=== PATIENT | female | born 1980 | race Caucasian/White ===

== ENCOUNTER 2017-01-11 18:59 | Emergency (ER) | payer MEDICAID ==
[~2017-01-11] VITALS: Ht 160 cm; Wt 79.7 kg
[~2017-01-11 18:59] MED LIST: AUG875 PO; D-ME473S2 PO; DOCU-144 PO; HYDR-3498 PO; HYDR25SU24 PR; IBUP-1542 PO; PANT40VI7 PO; POLY17PO6 PO; TRAM50TA2 PO
[2017-01-11 19:08] VITALS: Ht 160 cm; Wt 79.7 kg
[2017-01-11] MEDS ORDERED: IBUPROFEN 600 MG TAB PO ONE (21:00)
--- NOTE | 2017-01-11 21:33 | RADRPT ---
PROCEDURE: XR left Ankle. CLINICAL INDICATION: Fall. Lateral ankle pain. TECHNIQUE: AP, oblique and lateral views of the left ankle were performed. COMPARISON: None. FINDINGS: No fracture or dislocation. The bones are normal mineralization without cortical destruction. The talar dome is intact and ankle joint mortise well maintained. The remaining bones of the foot an d ankle are unremarkable. No soft tissue or osseous abnormality. IMPRESSION: 1. No fracture, dislocation, or soft tissue abnormality. RPTAT:AAJJ Physician Bhumi Date Time Electronically viewed and signed by Physician Bhumi on 01/11/2017 21:32 OLI/
--- NOTE | 2017-01-11 21:55 | RADRPT ---
PROCEDURE: XR Humerus. CLINICAL INDICATION: Fall. The left humerus pain. TECHNIQUE: AP and lateral views of the left humerus were performed. COMPARISON: None. FINDINGS: There is normal osseous mineralization and alignment. No fracture or osseous lesion is identified. T here are normal joints without evidence of arthritis or dislocation. The soft tissues are unremarkab le. IMPRESSION: 1. No fracture or dislocation. Unremarkable left humerus. RPTAT:AAJJ Physician Bhumi Date Time Electronically viewed and signed by Pawel Sam Physician on 01/11/2017 21:55 OLI/
--- NOTE | 2017-01-11 22:15 | RADRPT ---
PROCEDURE: Left forearm x-ray CLINICAL INDICATION: Fall. Pain. TECHNIQUE: AP and lateral views of the left forearm. COMPARISON: None. FINDINGS: No fracture or dislocation. The ulna and radius are intact. The wrist and elbow joints are unremar kable. No soft tissue abnormality. IMPRESSION: 1. No fracture or dislocation. No soft tissue abnormality. RPTAT:AAJJ Physician Bhumi Date Time Electronically viewed and signed by Physician Bhumi on 01/11/2017 22:15 OLI/
[2017-01-11] MEDS ORDERED: IBUP-1542 PO (22:19)
--- NOTE | 2017-01-11 22:41 | ERD ---
ER Documentation Chief Complaint Date/Time DATE: 01/11/17 TIME: 22:23 Chief Complaint L foot and L arm pain after fall today. No ko. HPI This is a 36 y/o female that presents to the ER with left arm pain and left ankle pain for the last 2 weeks after she tripped at home and fell. Patient states that pain is intermittent worse whenever she moves it. She rates it as 8 out of 10. Patient states that it is hard to walk and she is limping secondary to ankle pain. Patient denies any numbness or tingling of the area. She denies chills. ROS 12 point review of systems was done, all negative except per HPI. Medications Home Meds Active Scripts Ibuprofen* (Motrin*) 600 Mg Tab, 600 MG PO Q6, #30 TAB Prov:JANKI RODAS 01/11/17 Dextromethorphan Hb-Promethazine Hcl* (Promethazine DM* Syrup) 473 Ml Syrup, 5 ML PO Q6 Y for COUGH for 5 Days, ML Prov:CHRIS JORGENSEN MD 12/26/15 Ibuprofen* (Motrin*) 600 Mg Tab, 600 MG PO Q6, #14 TAB Prov:CHRIS JORGENSEN MD 12/26/15 Tramadol HCl (Tramadol HCl) 50 Mg Tablet, 50 MG PO Q4 Y for PAIN, #14 TAB Prov:WANDA ARMENDARIZ PA-C 10/30/15 Polyethylene Glycol* (Miralax*) 17 Gm Powd.pack, 17 GM PO DAILY, #7 Prov:BENTON FIGUEROA PA-C 08/14/15 Hydrocortisone Acetate* (Anusol-HC*) 25 Mg/Supp.rect Supp.rect, 1 SUPP [place] HS, # 12 SUPP.RECT Prov:BENTON FIGUEROA PA-C 08/14/15 Hydrocodone Bit/Acetaminophen (Anexsia 5-325 Mg Tablet) 1 Tab Tab, 1 TAB PO Q4H Y for PAIN, #21 Prov:BRITTNEY SINGH 12/17/14 Docusate Sodium* (Colace*) 100 Mg Capsule, 100 MG PO BID, #60 CAP Prov:BRITTNEY SINGH 12/17/14 Amoxicillin-Clavulanate K* (Augmentin*) 875 Mg Tab, 875 MG PO BID for 8 Days, TAB Prov:BRITTNEY SINGH. 12/17/14 Pantoprazole* (Protonix* IV) 40 Mg Soln, 40 MG PO DAILY@06 for 14 Days Prov:BRITTNEY SINGH. 12/17/14 Allergies Allergies: Coded Allergies: No Known Allergy (Unverified , 12/15/14) PMhx/Soc Medical and Surgical Hx: pt denies Surgical Hx History of Surgery: Yes (cholecystectomy, c-secontion, appendectomy) Anesthesia Reaction: No Hx Neurological Disorder: No Hx Respiratory Disorders: No Hx Cardiac Disorders: No Hx Psychiatric Problems: No Hx Miscellaneous Medical Probl: No Hx Alcohol Use: No Hx Substance Use: No Hx Tobacco Use: No Physical Exam Vitals Vital Signs Date Time Temp Pulse Resp B/P Pulse Ox O2 Delivery O2 Flow Rate FiO2 01/11/17 19:08 98.3 88 20 128/83 97 Physical Exam GENERAL: The patient is well developed and appropriate for usual state of health , in no apparent distress. HEENT: Atraumatic. CHEST: Clear to auscultation bilaterally. There are no rales, wheezes or rhonchi. HEART: Regular rate and rhythm. No murmurs, clicks, rubs or gallops. ABDOMEN: Soft, nontender and nondistended. Good bowel sounds. No rebound or guarding. No gross peritonitis. No gross organomegaly or masses. No Baptiste sign or McBurney point tenderness. BACK: No midline or flank tenderness. EXTREMITIES: Left shoulder: Patient has full range of motion of the left shoulder. She is nontender to palpation. She is tender to palpation along left humerus. Patient has normal range of motion of her left elbow. Patient is tender to palpation around left forearm. Patient does not have any wrist pain. She has full range of motion of her left wrist. no snuffbox tenderness NEURO: Alert and oriented Results 24 hrs Current Medications Medications (Trade) Dose Ordered Sig/Colby Route PRN Reason Start Time Stop Time Status Last Admin Dose Admin Ibuprofen (Motrin) 600 mg ONCE ONCE PO 01/11/17 21:00 01/11/17 21:01 DC 01/11/17 20:54 Procedures/MDM This is a 36-year-old female presents after falling 2 weeks ago. At this time patient is neurovascular intact has range of motion of all extremities. There is no evidence of fracture or dislocation. Patient will be sent home with ibuprofen. Patient needs to follow-up with her primary care doctor within 1-2 days or return to the ER sooner if symptoms worsen. Plan was discussed with patient she understands and agrees with plan. Departure Diagnosis: Primary Impression: Fall Condition: Stable Patient Instructions: Fall, Mechanical Additional Instructions: Llame al doctor MAANA y milvia monica AFSANEH PARA DENTRO DE 1-2 EFRGUSON.Dgale a la secretaria que nosotros le instruimos hacer esta afsaneh.Avise o llame si dorsey condicin se empeora antes de la afsaneh. Regresa aqui si peor o no mejor. JANKI RODAS Jan 11, 2017 22:38
== END 2017-01-11 22:46 | disposition home or self-care (01) ==
LOC: FTE 18:59
DX: S99.912A Unspecified injury of left ankle, initial encounter (principal); S59.912A Unspecified injury of left forearm, initial encounter; W01.0XXA Fall on same level from slipping, tripping and stumbling without subsequent striking against object, initial encounter; Y92.009 Unspecified place in unspecified non-institutional (private) residence as the place of occurrence of the external cause
CPT/HCPCS: 73060; 73090; 73610; Z7502; Z7610

== ENCOUNTER 2017-07-09 13:19 | Emergency (ER) | payer MEDICAID ==
[~2017-07-09] VITALS: Ht 157.5 cm; Wt 80.0 kg
[2017-07-09 13:22] VITALS: Ht 157.5 cm; Wt 80.0 kg
--- NOTE | 2017-07-09 14:05 | RADRPT ---
PROCEDURE: Chest Radiograph. CLINICAL INDICATION: Cough TECHNIQUE: Single frontal chest radiograph. COMPARISON: Chest radiograph 12/15/2014 FINDINGS: The cardiomediastinal silhouette is within normal limits. No infiltrate or effusion is seen. Th e bones are intact. IMPRESSION: 1. Unremarkable chest radiograph. RPTAT: KK .Carlos Guillen MD, MD Date Time Electronically viewed and signed by .Carlos Guillen MD, on 07/09/2017 14:05 .B/
[2017-07-09] MEDS ORDERED: BENZ100C70 PO (14:16)
[2017-07-09] MEDS ORDERED: RANI150T5 PO (14:16)
[2017-07-09] MEDS ORDERED: LORA10CA PO (14:16)
--- NOTE | 2017-07-09 14:38 | ERD ---
ER Documentation Chief Complaint Date/Time DATE: 07/09/17 TIME: 14:36 Chief Complaint cough x 3 days , epigastric pain HPI 37-year-old female presents with a dry cough for the past 3 days, also reports epigastric pain. She is also here with her son with the same cough. Cough has been dry, nonproductive, no apnea, cyanosis, fevers or chills. She denies recent trauma. She also presents with epigastric abdominal pain as burning pain associated with food. Denies any nausea or vomiting or diarrhea. Denies chest pain or shortness of breath. ROS All systems reviewed and are negative except as per history of present illness. Medications Home Meds Active Scripts Ranitidine Hcl* (Ranitidine Hcl*) 150 Mg Tablet, 150 MG PO Q12, #60 TAB Prov:WANDA ARMENDARIZ PA-C 07/09/17 Loratadine* (Claritin*) 10 Mg Capsule, 10 MG PO DAILY, #30 CAP Prov:WANDA ARMENDARIZ PA-C 07/09/17 Benzonatate* (Tessalon Perle*) 100 Mg Capsule, 100 MG PO Q8H Y for COUGH, #30 CAP Prov:WANDA ARMENDARIZ PA-C 07/09/17 Ibuprofen* (Motrin*) 600 Mg Tab, 600 MG PO Q6, #30 TAB Prov:JANKI RODAS 01/11/17 Dextromethorphan Hb-Promethazine Hcl* (Promethazine DM* Syrup) 473 Ml Syrup, 5 ML PO Q6 Y for COUGH for 5 Days, ML Prov:CHRIS JORGENSEN MD 12/26/15 Ibuprofen* (Motrin*) 600 Mg Tab, 600 MG PO Q6, #14 TAB Prov:CHRIS JORGENSEN MD 12/26/15 Tramadol HCl (Tramadol HCl) 50 Mg Tablet, 50 MG PO Q4 Y for PAIN, #14 TAB Prov:WANDA ARMENDARIZ PA-C 10/30/15 Polyethylene Glycol* (Miralax*) 17 Gm Powd.pack, 17 GM PO DAILY, #7 Prov:BENTON FIGUEROA PA-C 08/14/15 Hydrocortisone Acetate* (Anusol-HC*) 25 Mg/Supp.rect Supp.rect, 1 SUPP [place] HS, # 12 SUPP.RECT Prov:BENTON FIGUEROA PA-C 08/14/15 Hydrocodone Bit/Acetaminophen (Anexsia 5-325 Mg Tablet) 1 Tab Tab, 1 TAB PO Q4H Y for PAIN, #21 Prov:BRITTNEY SINGH. 12/17/14 Docusate Sodium* (Colace*) 100 Mg Capsule, 100 MG PO BID, #60 CAP Prov:BRITTNEY SINGH. 12/17/14 Amoxicillin-Clavulanate K* (Augmentin*) 875 Mg Tab, 875 MG PO BID for 8 Days, TAB Prov:BRITTNEY SINGH. 12/17/14 Pantoprazole* (Protonix* IV) 40 Mg Soln, 40 MG PO DAILY@06 for 14 Days Prov:BRITTNEY SINGH. 12/17/14 Allergies Allergies: Coded Allergies: No Known Allergy (Unverified , 12/15/14) PMhx/Soc History of Surgery: Yes (cholecystectomy, c-secontion, appendectomy) Anesthesia Reaction: No Hx Neurological Disorder: No Hx Respiratory Disorders: No Hx Cardiac Disorders: No Hx Psychiatric Problems: No Hx Miscellaneous Medical Probl: No Hx Alcohol Use: No Hx Substance Use: No Hx Tobacco Use: No Physical Exam Vitals Vital Signs Date Time Temp Pulse Resp B/P Pulse Ox O2 Delivery O2 Flow Rate FiO2 07/09/17 13:22 98.6 86 18 127/81 98 Physical Exam General: Well-developed, well-nourished. The patient appears in no acute distress. HEENT: Head is normocephalic, atraumatic. No scleral icterus. Neck: Supple. Nontender. Lungs: Clear to auscultation. Normal air movement. Heart: Regular rate and rhythm. S1 and S2 are normal. No murmurs, gallops, or rubs. Abdomen: Nondistended. Nontender no masses Extremities: No clubbing or cyanosis. Moving extremities x 4. No weakness. Neurologic: Alert and oriented 3. No focal deficits. Normal speech and gait. Skin: Normal turgor. No rash or lesions. Results 24 hrs DIAGNOSTIC IMAGING REPORT Patient: MIRANDA SANCHES : 1980 Age: 37 Sex: F [id number] DOS: 07/09/17 0000 Ordering MD: WANDA ARMENDARIZ PA-C Location: E Room/Bed: PROCEDURE: Chest Radiograph. CLINICAL INDICATION: Cough TECHNIQUE: Single frontal chest radiograph. COMPARISON: Chest radiograph 12/15/2014 FINDINGS: The cardiomediastinal silhouette is within normal limits. No infiltrate or effusion is seen. The bones are intact. IMPRESSION: 1. Unremarkable chest radiograph. RPTAT: KK .Carlos Guillen MD, Date Time Electronically viewed and signed by .Carlos Guillen MD, MD on 2016 14:05 .B/ CC: WANDA ARMENDARIZ PA-C Procedures/MDM The patient is a 37-year-old female who comes in with an acute upper respiratory infection, presumed viral. Chest x-ray is normal. Abdominal pain is likely related to gastritis versus GERD as it is worse with eating and burning type pain. She is asymptomatic at this time, will be given ranitidine for home. The patient has a differential diagnosis of a viral upper respiratory infection, bacterial upper respiratory infection, bronchitis, pneumonia, pharyngitis, laryngitis, epiglottitis, croup, pneumonia. Patient has a normal pulmonary examination, clear breath sounds, normal pulse oximetry, with no corrective measures needed at this time. Fluids, rest, antipyretics were encouraged. Departure Diagnosis: Primary Impression: Cough Additional Impression: Abdominal pain Condition: Good Patient Instructions: Treating Gastritis, Uri, Viral, No Abx (Adult) WANDA ARMENDARIZ PA-C Jul 09, 2017 14:32
== END 2017-07-09 14:39 | disposition home or self-care (01) ==
LOC: FTE 13:19
DX: R05 Cough (principal); R10.13 Epigastric pain
CPT/HCPCS: 71010; Z7502

== ENCOUNTER 2017-08-15 13:11 | Emergency (ER) | payer MEDICAID ==
[~2017-08-15] VITALS: Ht 162.6 cm; Wt 80.0 kg
[~2017-08-15 13:11] MED LIST changes: +BENZ100C70 PO; +LORA10CA PO; +RANI150T5 PO
[2017-08-15 13:14] VITALS: Ht 162.6 cm; Wt 80.0 kg
[2017-08-15 14:12] LABS: BASOPHILS % 0.4 % (0.0-2.0); EOSINOPHILS # 0.3 10^3/ul (0.0-0.5); EOSINOPHILS % 3.7 % (0.0-7.0); HEMATOCRIT 39.6 % (37.0-47.0); HEMOGLOBIN 13.4 g/dl (12.0-16.0); LYMPHOCYTES # 2.5 10^3/ul (0.8-2.9); LYMPHOCYTES % 36.6 % (15.0-51.0); MEAN CORPUSCULAR HEMOGLOBIN 27.2 pg (29.0-33.0); MEAN CORPUSCULAR HGB CONC 33.8 g/dl (32.0-37.0); MEAN CORPUSCULAR VOLUME 80.3 fl (82.0-101.0); MEAN PLATELET VOLUME 8.3 fl (7.4-10.4); MONOCYTE # 0.5 10^3/ul (0.3-0.9); MONOCYTES % 6.8 % (0.0-11.0); NEUTROPHIL # 3.5 10^3/ul (1.6-7.5); NEUTROPHILS % 52.4 % (39.0-77.0); PLATELET COUNT 287 10^3/UL (140-415); RED BLOOD COUNT 4.93 10^6/ul (4.20-5.40); RED CELL DISTRIBUTION WIDTH 12.8 % (11.5-14.5); WHITE BLOOD COUNT 6.8 10^3/ul (4.8-10.8)
[2017-08-15 14:20] LABS: ADD UMIC YES; UR ASCORBIC ACID NEGATIVE (NEGATIVE); UR BACTERIA FEW /HPF (NONE SEEN); UR BILIRUBIN (Dip) NEGATIVE (NEGATIVE); UR BLOOD (Dip) 3+ mg/dL (NEGATIVE); UR CLARITY CLOUDY (CLEAR); UR COLOR AMBER (YELLOW); UR GLUCOSE (Dip) NEGATIVE (NEGATIVE); UR KETONES (Dip) NEGATIVE (NEGATIVE); UR LEUKOCYTE ESTERASE (Dip) NEGATIVE Leu/ul (NEGATIVE); UR MUCUS FEW /HPF (NONE SEEN); UR NITRITE (Dip) NEGATIVE (NEGATIVE); UR RBC > 182 /HPF (0-5); UR SPECIFIC GRAVITY (Dip) 1.031 (1.003-1.030); UR SQUAMOUS EPITHELIAL CELL MODERATE /HPF (FEW); UR TOTAL PROTEIN (Dip) 2+ mg/dl (NEGATIVE); UR UROBILINOGEN (Dip) 1+ mg/dL (NEGATIVE)
--- NOTE | 2017-08-15 14:32 | ERD ---
ER Documentation Chief Complaint Date/Time DATE: 08/15/17 TIME: 14:28 Chief Complaint diffuse abdominal pain with "vomiting and diarrhea for past 2-3 month" HPI 37-year-old female complaining of diffuse abdominal pain on and off 2 month. Patient states that she has pain every day, about 8 times a day. Each time she has abdominal pain, she would have diarrhea. She also has one episode of vomiting a day. The symptoms are not related with food intake. Stool is nonbloody. The vomit is nonbloody and nonbilious. Patient is states that she feels 2 small lumps on the right lower side of her abdomen at times. Denies fever or chills. She also complains of itchy lesions on her shins for "a long time". The lesions has not increasing size over time. Denies exposure to new foods or new cleaning products. ROS All systems reviewed and are negative except as per history of present illness. Medications Home Meds Active Scripts Hydrocortisone* Topical (Hydrocortisone* Topical) 0.5%- 28.35 Gm Oint, 1 APPLIC TOP BID Y for ITCHING, #1 TUB Prov:TERESA CESPEDES. TECHNICAL PRODUCT MANAGER 08/15/17 Acetaminophen* (Tylophen*) 500 Mg Capsule, 1 CAP PO Q6H Y for PAIN AND OR ELEVATED TEMP, #20 CAP Prov:TERESA CESPEDES. TECHNICAL PRODUCT MANAGER 08/15/17 Metronidazole* (Flagyl*) 500 Mg Tablet, 500 MG PO TID for 7 Days, TAB Prov:TERESA CESPEDES. TECHNICAL PRODUCT MANAGER 08/15/17 Ciprofloxacin Hcl* (Ciprofloxacin Hcl*) 500 Mg Tablet, 500 MG PO BID for 7 Days , TAB Prov:TERESA CESPEDES. TECHNICAL PRODUCT MANAGER 08/15/17 Ranitidine Hcl* (Ranitidine Hcl*) 150 Mg Tablet, 150 MG PO Q12, #60 TAB Prov:WANDA ARMENDARIZ PA-C 07/09/17 Loratadine* (Claritin*) 10 Mg Capsule, 10 MG PO DAILY, #30 CAP Prov:WANDA ARMENDARIZ PA-C 07/09/17 Benzonatate* (Tessalon Perle*) 100 Mg Capsule, 100 MG PO Q8H Y for COUGH, #30 CAP Prov:WANDA ARMENDARIZ PA-C 07/09/17 Ibuprofen* (Motrin*) 600 Mg Tab, 600 MG PO Q6, #30 TAB Prov:JANKI RODAS 01/11/17 Dextromethorphan Hb-Promethazine Hcl* (Promethazine DM* Syrup) 473 Ml Syrup, 5 ML PO Q6 Y for COUGH for 5 Days, ML Prov:CHRIS JORGENSEN MD 12/26/15 Ibuprofen* (Motrin*) 600 Mg Tab, 600 MG PO Q6, #14 TAB Prov:CHRIS JORGENSEN MD 12/26/15 Tramadol HCl (Tramadol HCl) 50 Mg Tablet, 50 MG PO Q4 Y for PAIN, #14 TAB Prov:WANDA ARMENDARIZ PA-C 10/30/15 Polyethylene Glycol* (Miralax*) 17 Gm Powd.pack, 17 GM PO DAILY, #7 Prov:BENTON FIGUEROA PA-C 08/14/15 Hydrocortisone Acetate* (Anusol-HC*) 25 Mg/Supp.rect Supp.rect, 1 SUPP [place] HS, # 12 SUPP.RECT Prov:BENTON FIGUEROA PA-C 08/14/15 Hydrocodone Bit/Acetaminophen (Anexsia 5-325 Mg Tablet) 1 Tab Tab, 1 TAB PO Q4H Y for PAIN, #21 Prov:BRITTNEY SINGH. 12/17/14 Docusate Sodium* (Colace*) 100 Mg Capsule, 100 MG PO BID, #60 CAP Prov:BRITTNEY SINGH. 12/17/14 Amoxicillin-Clavulanate K* (Augmentin*) 875 Mg Tab, 875 MG PO BID for 8 Days, TAB Prov:BRITTNEY SINGH 12/17/14 Pantoprazole* (Protonix* IV) 40 Mg Soln, 40 MG PO DAILY@06 for 14 Days Prov:BRITTNEY SINGH. 12/17/14 Allergies Allergies: Coded Allergies: No Known Allergy (Unverified , 12/15/14) PMhx/Soc Medical and Surgical Hx: pt denies Medical Hx, pt denies Surgical Hx History of Surgery: Yes (cholecystectomy, c-secontion, appendectomy) Anesthesia Reaction: No Hx Neurological Disorder: No Hx Respiratory Disorders: No Hx Cardiac Disorders: No Hx Psychiatric Problems: No Hx Miscellaneous Medical Probl: No Hx Alcohol Use: No Hx Substance Use: No Hx Tobacco Use: No Physical Exam Vitals Vital Signs Date Time Temp Pulse Resp B/P Pulse Ox O2 Delivery O2 Flow Rate FiO2 08/15/17 13:14 98.8 76 18 113/68 97 Physical Exam General: Well-developed, well-nourished, conscious and coherent, in no distress Skin: Warm and dry, good texture and turgor. Several small patches of erythematous, and scaly lesions noted on the anterior lower legs bilaterally. Head: Normocephalic without evidence of trauma Eyes: Sclera and conjunctivae normal; pupils equal, round, and reactive to light; extraocular movements are intact Neck: Supple without meningismus or adenopathy. Carotids are equal. Trachea midline. No bruits or JVD Chest: Normal AP diameter. Good expansion without retractions. Nontender. Lungs are clear to auscultate bilaterally with good tidal volume Heart: Regular rate and rhythm. No murmur, rub, or gallops heard Abdomen: Soft and nontender without masses, guarding, or rebound. Bowel sounds are active. No hepatosplenomegaly. 2 small lymph nodes noted in the right lower quadrant. Back: Without spinal or CVA tenderness Pelvis: Nontender to palpation and stable to compression Extremities: Full range of motion. Good strength bilaterally. No clubbing, cyanosis, or edema. Peripheral pulses are intact. Sensation intact Neuro: Alert and oriented 4, GCS 15. Cranial nerves grossly intact. Motor and sensory exams nonfocal. Moves all extremities. Speech clear. Gait normal Result Diagram: 08/15/17 1404 08/15/17 1404 Results 24 hrs Laboratory Tests Test 08/15/17 13:58 08/15/17 14:04 Urine Color JEFF Urine Clarity CLOUDY Urine pH 5.0 Urine Specific [place] 1.031 Urine Ketones NEGATIVEmg/dL Urine Nitrite NEGATIVEmg/dL Urine Bilirubin NEGATIVEmg/dL Urine Urobilinogen 1+mg/dL Urine Leukocyte Esterase NEGATIVELeu/ul Urine Microscopic RBC > 182/HPF Urine Microscopic WBC 21/HPF Urine Squamous Epithelial Cells MODERATE/HPF Urine Calcium Oxalate Crystals MODERATE/HPF Urine Bacteria FEW/HPF Urine Mucus FEW/HPF Urine Hemoglobin 3+mg/dL Urine Glucose NEGATIVEmg/dL Urine Total Protein 2+mg/dl Urine Test NEGATIVE White Blood Count 6.810^3/ul Red Blood Count 4.9310^6/ul Hemoglobin 13.4g/dl Hematocrit 39.6% Mean Corpuscular Volume 80.3fl Mean Corpuscular Hemoglobin 27.2pg Mean Corpuscular Hemoglobin Concent 33.8g/dl Red Cell Distribution Width 12.8% Platelet Count 14964^3/UL Mean Platelet Volume 8.3fl Neutrophils % 52.4% Lymphocytes % 36.6% Monocytes % 6.8% Eosinophils % 3.7% Basophils % 0.4% Nucleated Red Blood Cells % 0.0/100WBC Neutrophils # 3.510^3/ul Lymphocytes # 2.510^3/ul Monocytes # 0.510^3/ul Eosinophils # 0.310^3/ul Basophils # 0.010^3/ul Nucleated Red Blood Cells # 0.010^3/ul Sodium Level 142mmol/L Potassium Level 3.8mmol/L Chloride Level 108mmol/L Carbon Dioxide Level 23mmol/L Anion Gap 15 Blood Urea Nitrogen 14mg/dl Creatinine 0.68mg/dl Glucose Level 119mg/dl Calcium Level 8.9mg/dl Total Bilirubin 0.2mg/dl Direct Bilirubin 0.00mg/dl Indirect Bilirubin 0.2mg/dl Aspartate Amino Transf (AST/SGOT) 24IU/L Alanine Aminotransferase (ALT/SGPT) 41IU/L Alkaline Phosphatase 108IU/L Total Protein 7.5g/dl Albumin 4.1g/dl Globulin 3.40g/dl Albumin/Globulin Ratio 1.20 Lipase 110U/L PROCEDURE: CT abdomen and pelvis without contrast. CLINICAL INDICATION: Abdominal pain. TECHNIQUE: CT scan of the abdomen and pelvis without contrast was performed on a multi-slice CT scanner . Sagittal and coronal reformatted images were obtained from the axial source images. One or more of the following dose reduction techniques were used: - Automated exposure control. - Adjustment of the mA and/or kV according to patient size. - Use of iterative reconstruction technique. DLP 803.3 mGycm. CTDIvol 15.5 mGy COMPARISON: None FINDINGS: The lung bases are clear. There is limited evaluation of the solid viscera from the lack of IV contrast. The kidneys are symmetric bilaterally with no evidence of renal or ureteral calculi. There is no hydronephrosis or perinephric stranding. There is uniform density of the liver with no gross focal lesion or biliary ductal dilatation. The gallbladder is removed. The spleen is unremarkable without mass. The adrenal glands are within normal limits without mass. The pancreas is unremarkable without focal lesion or surrounding inflammatory changes. There is no bowel obstruction or visible bowel inflammation with no surrounding fat stranding or visible bowel wall edema. Mildly prominent clustered lymph nodes are seen in the right lower quadrant adjacent to the cecum. A normal- appearing appendix is not visible. The aorta is unremarkable and there is no acute osseous abnormality. The uterus and adnexal structures are grossly unremarkable. IMPRESSION: Indeterminate mild prominence of lymph nodes adjacent to the cecum with no other signs of inflammation. This could represent a low grade colitis. There is no obstruction. The appendix is not visible. No evidence of renal or ureteral calculi or hydronephrosis. RPTAT: AA .Vania Stern MD, MD Date Time Electronically viewed and signed by .Vania Stern MD, MD on 08/15/2017 17:31 .J/ CC: TERESA CESPEDES. TECHNICAL PRODUCT MANAGER Procedures/MDM Well-appearing 37-year-old female presented ED with diffuse abdominal pain and diarrhea for 2 months. BC, CMP, and lipase are unremarkable. UA is noted to have 3+ hemoglobin and 2+ protein. Negative leukocyte, negative nitrite. She stated that she is currently has vaginal spotting. I think that is the reason of the blood in the urine. CT of the abdomen and pelvis without IV contrast was obtained. CT showed indeterminate mild prominence of lymph nodes adjacent to the cecum with no other sign of inflammation. This could represent a low-grade colitis. Patient history is consistent with colitis. Patient will be treated with Flagyl and Cipro. Also complaining of itchy lesions on her lower legs. The lesions are consistent with eczema. Patient appears well, stable for discharge and outpatient management. Medical decision making shared with patient and family. Education provided to patient and family. Patient and family expressed understanding of the plan. Medications on discharge: Tylenol, Flagyl, Cipro, hydrocortisone cream. Follow-up: Primary care provider in 2-3 days or return to ED if worse. Disclaimer: Inadvertent spelling and grammatical errors are likely due to EHR/ dictation software use and do not reflect on the overall quality of patient care. Also, please note that the electronic time recorded on this note does not necessarily reflect the actual time of the patient encounter. Departure Diagnosis: Primary Impression: Colitis Additional Impression: Eczema Eczema type: unspecified Qualified Code: L30.9 - Eczema, unspecified type Condition: TERESA Cavazos NP Aug 15, 2017 14:32
[2017-08-15 14:55] LABS: ALBUMIN 4.1 g/dl (3.3-4.9); ALBUMIN/GLOBULIN RATIO 1.2; BILIRUBIN,INDIRECT 0.2 mg/dl (0-1.1); BILIRUBIN,TOTAL 0.2 mg/dl (0.2-1.3); CALCIUM 8.9 mg/dl (8.4-10.2); CREATININE 0.68 mg/dl (0.44-1.00); POTASSIUM 3.8 mmol/L (3.5-5.1); TOTAL PROTEIN 7.5 g/dl (6.1-8.1)
--- NOTE | 2017-08-15 17:32 | RADRPT ---
PROCEDURE: CT abdomen and pelvis without contrast. CLINICAL INDICATION: Abdominal pain. TECHNIQUE: CT scan of the abdomen and pelvis without contrast was performed on a multi-slice CT [facility] . Sagittal and coronal reformatted images were obtained from the axial source images. One or more of the following dose reduction techniques were used: - Automated exposure control. - Adjustment of the mA and/or kV according to patient size. - Use of iterative reconstruction technique. DLP 803.3 mGycm. CTDIvol 15.5 mGy COMPARISON: None FINDINGS: The lung bases are clear. There is limited evaluation of the solid viscera from the lack of IV con trast. The kidneys are symmetric bilaterally with no evidence of renal or ureteral calculi. There is no hy dronephrosis or perinephric stranding. There is uniform density of the liver with no gross focal lesion or biliary ductal dilatation. The gallbladder is removed. The spleen is unremarkable without mass. The adrenal glands are within normal limits without mass. The pancreas is unremarkable without focal lesion or surrounding inflammatory changes. There is no bowel obstruction or visible bowel inflammation with no surrounding fat stranding or vis ible bowel wall edema. Mildly prominent clustered lymph nodes are seen in the right lower quadrant a djacent to the cecum. A normal-appearing appendix is not visible. The aorta is unremarkable and there is no acute osseous abnormality. The uterus and adnexal structures are grossly unremarkable. IMPRESSION: Indeterminate mild prominence of lymph nodes adjacent to the cecum with no other signs of inflammati on. This could represent a low grade colitis. There is no obstruction. The appendix is not visible. No evidence of renal or ureteral calculi or hydronephrosis. RPTAT: AA .Vania Stern MD, MD Date Time Electronically viewed and signed by .Vania Stern MD, MD on 08/15/2017 17:31 .Pawel/
[2017-08-15] MEDS ORDERED: CIPR500T4 PO (18:02)
[2017-08-15] MEDS ORDERED: METR500T PO (18:02)
[2017-08-15] MEDS ORDERED: HC.5O30 TOP (18:02)
[2017-08-15] MEDS ORDERED: ACET500C5 PO (18:02)
== END 2017-08-15 18:13 | disposition home or self-care (01) ==
LOC: FTE 13:11
DX: K52.9 Noninfective gastroenteritis and colitis, unspecified (principal); L30.9 Dermatitis, unspecified
CPT/HCPCS: 36415; 74176; 80053; 81001; 83690; 84703; 85025; 87045; 87177; Z7502

== ENCOUNTER 2017-11-10 11:41 | Emergency (ER) | END 2017-11-10 15:32 | disposition home or self-care (01) ==

== ENCOUNTER 2018-05-31 08:51 | Emergency (ER) | END 2018-05-31 11:02 | disposition home or self-care (01) ==

== ENCOUNTER 2018-07-06 08:29 | Emergency (ER) | END 2018-07-06 10:59 | disposition home or self-care (01) ==

== ENCOUNTER 2019-05-16 07:01 | Emergency (ER) | payer MEDICAID ==
[~2019-05-16] VITALS: Ht 152.4 cm; Wt 79.6 kg
[~2019-05-16 07:01] MED LIST changes: +ACET500C5 PO; +BENZ-6 PO; -BENZ100C70 PO; +CIPR500T4 PO; +FAMO-96 PO; +HC.5O30 TOP; +HYDR-4011 PO; +METR500T PO; +NAPR-985 PO; +ONDA4TAB14 PO
[2019-05-16 07:18] VITALS: BP 130/84; PULSE 80; RESP 18; Ht 152.4 cm; Wt 79.6 kg
[2019-05-16] MEDS ORDERED: CIPR500T4 PO (08:06)
--- NOTE | 2019-05-16 08:07 | ERD ---
ER Documentation Chief Complaint Chief Complaint painful urination x2 days HPI 88-year-old female presents the ED complaining of painful urination x2 days. Reports that it mostly just hurts when she pees and she might have noticed a little bit of blood in her urine this morning. She reports pain in her suprapubic region that does not radiate anywhere. She reports that the pain in the suprapubic region is constant. She reports the pain is 8 out of 10 when she is urinating. She is not on her period currently and states that she is taking Depo every 3 months and as a result her last menstrual period was at the end of January. She denies a past medical history. She denies fevers or any other symptoms at this time. ROS All systems reviewed and are negative except as per history of present illness. Medications Home Meds Active Scripts Ciprofloxacin Hcl* (Ciprofloxacin Hcl*) 500 Mg Tablet, 500 MG PO BID for 7 Days, TAB Prov:PATTI RUTHERFORD PA-C 05/16/19 Famotidine* (Pepcid*) 20 Mg Tablet, 20 MG PO BID for 4 Days, #30 TAB Prov:BENTON FIGUEROA PA-C 07/06/18 Hydrocodone/Acetaminophen ([place] 5-325 Tablet) 1 Each Tablet, 1 TAB PO Q6H PRN for PAIN, #7 TAB Prov:BENTON FIGUEROA PA-C 07/06/18 Naproxen* (Naprosyn*) 500 Mg Tablet, 500 MG PO BID PRN for PAIN AND/OR INFLAMMATION, #30 TAB Prov:BENTNO FIGUEROA PA-C 05/31/18 Benzonatate* (Tessalon Perle*) 100 Mg Capsule, 100 MG PO Q8H PRN for COUGH, #30 CAP Prov:WANDA ARMENDARIZ PA-C 11/10/17 Ibuprofen* (Motrin*) 600 Mg Tab, 600 MG PO Q6, #30 TAB Prov:WANDA ARMENDARIZ PA-C 11/10/17 Ondansetron (Ondansetron Odt) 4 Mg Tab.rapdis, 4 MG PO Q6H PRN for NAUSEA AND/OR VOMITING, #10 TAB Prov:WANDA ARMENDARIZ PA-C 11/10/17 Hydrocortisone* Topical (Hydrocortisone* Topical) 0.5%- 28.35 Gm Oint, 1 APPLIC TOP BID PRN for ITCHING, #1 TUB Prov:COYTERESA X. MOLDING PLASTERER 08/15/17 Acetaminophen* (Tylophen*) 500 Mg Capsule, 1 CAP PO Q6H PRN for PAIN AND OR ELEVATED TEMP, #20 CAP Prov:COYTERESA Warren. MOLDING PLASTERER 08/15/17 Metronidazole* (Flagyl*) 500 Mg Tablet, 500 MG PO TID for 7 Days, TAB Prov:COYTERESA X. MOLDING PLASTERER 08/15/17 Ciprofloxacin Hcl* (Ciprofloxacin Hcl*) 500 Mg Tablet, 500 MG PO BID for 7 Days, TAB Prov:TERESA CESPEDES. MOLDING PLASTERER 08/15/17 Ranitidine Hcl* (Ranitidine Hcl*) 150 Mg Tablet, 150 MG PO Q12, #60 TAB Prov:WANDA ARMENDARIZ PA-C 07/09/17 Loratadine* (Claritin*) 10 Mg Capsule, 10 MG PO DAILY, #30 CAP Prov:WANDA ARMENDARIZ PA-C 07/09/17 Benzonatate* (Tessalon Perle*) 100 Mg Capsule, 100 MG PO Q8H PRN for COUGH, #30 CAP Prov:WANDA ARMENDARIZ PA-C 07/09/17 Ibuprofen* (Motrin*) 600 Mg Tab, 600 MG PO Q6, #30 TAB Prov:JANKI RODAS 01/11/17 Dextromethorphan Hb-Promethazine Hcl* (Promethazine DM* Syrup) 473 Ml Syrup, 5 ML PO Q6 PRN for COUGH for 5 Days, ML Prov:CHRIS JORGENSEN MD 12/26/15 Ibuprofen* (Motrin*) 600 Mg Tab, 600 MG PO Q6, #14 TAB Prov:CHRIS JORGENSEN MD 12/26/15 Tramadol HCl (Tramadol HCl) 50 Mg Tablet, 50 MG PO Q4 PRN for PAIN, #14 TAB Prov:WANDA ARMENDARIZ PA-C 10/30/15 Polyethylene Glycol* (Miralax*) 17 Gm Powd.pack, 17 GM PO DAILY, #7 Prov:BENTON FIGUEROA PA-C 08/14/15 Hydrocortisone Acetate* (Anusol-HC*) 25 Mg/Supp.rect Supp.rect, 1 SUPP NE HS, #12 SUPP.RECT Prov:BENTON FIGUEROA PA-C 08/14/15 Hydrocodone Bit/Acetaminophen (Anexsia 5-325 Mg Tablet) 1 Tab Tab, 1 TAB PO Q4H PRN for PAIN, #21 Prov:BRITTNEY SINGH. 12/17/14 Docusate Sodium* (Colace*) 100 Mg Capsule, 100 MG PO BID, #60 CAP Prov:BRITTNEY SINGH. 12/17/14 Amoxicillin-Clavulanate K* (Augmentin*) 875 Mg Tab, 875 MG PO BID for 8 Days, TAB Prov:BRITTNEY SINGH. 12/17/14 Pantoprazole* (Protonix* IV) 40 Mg Soln, 40 MG PO DAILY@06 for 14 Days Prov:BRITTNEY SINGH. 12/17/14 Allergies Allergies: Coded Allergies: No Known Allergy (Unverified , 05/31/18) PMhx/Soc Medical and Surgical Hx: pt denies Medical Hx History of Surgery: Yes (Appendectomy, C/S, Marika) Anesthesia Reaction: No Hx Neurological Disorder: No Hx Respiratory Disorders: No Hx Cardiac Disorders: No Hx Psychiatric Problems: No Hx Miscellaneous Medical Probl: No Hx Alcohol Use: No Hx Substance Use: No Hx Tobacco Use: No Smoking Status: Never smoker FmHx Family History: No diabetes Physical Exam Vitals Vital Signs Date Temp Pulse Resp B/P (MAP) Pulse Ox O2 O2 Flow FiO2 Time Delivery Rate 05/16/19 99.4 80 18 130/84 99 07:18 (99) Physical Exam Const: No acute distress Head: Atraumatic Eyes: Normal Conjunctiva ENT: Normal External Ears, Nose and Mouth. Neck: Full range of motion. No meningismus. Resp: Clear to auscultation bilaterally Cardio: Regular rate and rhythm, Abd: Normal bowel sounds, soft, tenderness to the suprapubic region Skin: No petechiae or rashes Back: No midline or flank tenderness Ext: No cyanosis, or edema Neur: Awake and alert Psych: Normal Mood and Affect Results 24 hrs Laboratory Tests Test 05/16/19 07:37 05/16/19 07:43 Urine Color YELLOW Urine Clarity CLOUDY Urine pH 5.0 Urine Specific [place] 1.023 Urine Ketones NEGATIVE mg/dL Urine Nitrite NEGATIVE mg/dL Urine Bilirubin NEGATIVE mg/dL Urine Urobilinogen NEGATIVE mg/dL Urine Leukocyte Esterase 3+ Kelvin/ul Urine Microscopic RBC > 182 /HPF Urine Microscopic WBC > 182 /HPF Urine Squamous Epithelial Cells FEW /HPF Urine Bacteria MODERATE /HPF Urine Hemoglobin 3+ mg/dL Urine Glucose NEGATIVE mg/dL Urine Total Protein 2+ mg/dl POC Beta HCG, Qualitative NEGATIVE Procedures/MDM ED COURSE: The patient was stable throughout ED course. I kept the patient informed of lab oratory and diagnostic imaging results throughout the ED course. MEDICATIONS GIVEN: [None.] MEDICAL DECISION MAKING: Patient is a 38-year-old female complaining of abdominal pain and painful urination x2 days. She reports the pain is located on her suprapubic region and worse when she pees. She did notice slight blood in her urine this morning. On physical exam patient was unremarkable besides tenderness to the suprapubic region. Urinalysis was done showing 3+ leukocyte esterase. This patient presents to the ED with symptoms consistent with a urinary tract infection. Considering the patient history and physical during exam, other differential diagnosis that were considered include acute pyelonephritis, bladder cancer, chlamydial genitourinary infections, herpes simplex, interstitial cystitis, PID, urethrtitis, vaginitis. Vital signs were reviewed. Patient is afebrile. Patient was not hypoxic. Patient was hemodynamically stable. Patient was prescribed ciprofloxacin to treat her urinary tract infection and told to follow up with primary care for further care and management. PRESCRIPTION: Ciprofloxacin DISCHARGE: At this time, patient is stable for discharge and outpatient management. I have instructed the patient to follow-up with his/her primary care physician in 1-2 days. I have discussed with the patient the possibility of needing to see a specialist for further workup and imaging studies if symptoms persist. I have instructed the patient to promptly return to the ER for any new or worsening symptoms including increased pain, fever, nausea, vomiting, weakness or LOC. The patient expressed understanding of and agreement with this plan. All questions were answered. Home care instructions were provided. Disclaimer: Inadvertent spelling and grammatical errors are likely due to EHR/dictation software use and do not reflect on the overall quality of patient care. Also, please note that the electronic time recorded on this note does not necessarily reflect the actual time of the patient encounter. Departure Diagnosis: Primary Impression: UTI (urinary tract infection) Urinary tract infection type: acute cystitis Hematuria presence: with hematuria Qualified Codes: N30.01 - Acute cystitis with hematuria Condition: Fair Patient Instructions: Understanding Urinary Tract Infections (UTIs) Referrals: [facility] [place] YOU HAVE RECEIVED A MEDICAL SCREENING EXAM AND THE RESULTS INDICATE THAT YOU DO NOT HAVE A CONDITION THAT REQUIRES URGENT TREATMENT IN THE EMERGENCY DEPARTMENT. FURTHER EVALUATION AND TREATMENT OF YOUR CONDITION CAN WAIT UNTIL YOU ARE SEEN IN YOUR DOCTORS OFFICE WITHIN THE NEXT 1-2 DAYS. IT IS YOUR RESPONSIBILITY TO MAKE AN APPOINTMENT FOR FOLOW-UP CARE. IF YOU HAVE A PRIMARY DOCTOR --you should call your primary doctor and schedule an appointment IF YOU DO NOT HAVE A PRIMARY DOCTOR YOU CAN CALL OUR PHYSICIAN REFERRAL HOTLINE AT IF YOU CAN NOT AFFORD TO SEE A PHYSICIAN YOU CAN CHOSE FROM THE FOLLOWING [facility] [address] [facility] [address] [facility] [address] [facility] [address] [facility] [address] [facility]. [facility] [address] [place] YOU HAVE RECEIVED A MEDICAL SCREENING EXAM AND THE RESULTS INDICATE THAT YOU DO NOT HAVE A CONDITION THAT REQUIRES URGENT TREATMENT IN THE EMERGENCY DEPARTMENT. FURTHER EVALUATION AND TREATMENT OF YOUR CONDITION CAN WAIT UNTIL YOU ARE SEEN IN YOUR DOCTORS OFFICE WITHIN THE NEXT 1-2 DAYS. IT IS YOUR RESPONSIBILITY TO MAKE AN APPOINTMENT FOR FOLOW-UP CARE. IF YOU HAVE A PRIMARY DOCTOR --you should call your primary doctor and schedule and appointment IF YOU DO NOT HAVE A PRIMARY DOCTOR YOU CAN CALL OUR PHYSICIAN REFERRAL HOTLINE AT . IF YOU CAN NOT AFFORD TO SEE A PHYSICIAN YOU CAN CHOSE FROM THE FOLLOWING [facility] INSTITUTIONS: [facility] [address] [place] [address] [facility] [address] [place] [address] [facility] [address] [place] [address] Additional Instructions: Call your primary care doctor TOMORROW for an appointment during the next 1-2 days.See the doctor sooner or return here if your condition worsens before your appointment time. PATTI RUTHERFORD PA-C May 16, 2019 08:07
== END 2019-05-16 08:28 | disposition home or self-care (01) ==
LOC: FTE 07:01
DX: N30.01 Acute cystitis with hematuria (principal)
CPT/HCPCS: 81001; 81025; Z7502; 99283

== ENCOUNTER 2019-06-10 22:30 | Emergency (ER) | payer MEDICAID ==
[~2019-06-10] VITALS: Ht 144.8 cm; Wt 79.5 kg
[~2019-06-10 22:30] MED LIST changes: +IBUP800T48 PO
[2019-06-10 22:44] VITALS: Ht 144.8 cm; Wt 79.5 kg
--- NOTE | 2019-06-11 00:19 | ERD ---
ER Documentation Chief Complaint Chief Complaint vaginal bleeding x 1 month HPI This is a 39-year-old female presents emergency department with complaints of vaginal bleeding this on and off for about a month, pelvic pain for about 2 days. LMP: Unknown. Stated that she has Depo shot. A0. Denies headache, head injury, loss of consciousness, dizziness, neck pain, neck stiffness, throat pain, difficulty swallowing, difficulty breathing lying flat, shoulder pain, chest pain, back pain, abdominal pain, nausea, vomiting, co nstipation, diarrhea, urinary symptoms, or possibility being , loss of bowel and bladder control, trauma, injury, falls, difficulty walking due to pain, numbness or tingling sensation, calf pain, recent travel, recent major surgery in the last 3 weeks, calf pain, recent long travel, recent exposure to any illness, recent antibiotic use in the last 3 months, fever, chills, seizure s. Past medical history: Denies. Surgical history: Denies. Social: Denies smoking, use of alcoholic beverages, use of illegal drugs. ROS All systems reviewed and are negative except as per history of present illness. Medications Home Meds Active Scripts Ibuprofen* (Motrin*) 800 Mg Tab, 800 MG PO Q6H PRN for PAIN AND OR ELEVATED TEMP, #30 TAB Prov:JAMISON CONTRERAS 06/11/19 Ciprofloxacin Hcl* (Ciprofloxacin Hcl*) 500 Mg Tablet, 500 MG PO BID for 7 Days, TAB Prov:PATTI RUTHERFORD PA-C 05/16/19 Famotidine* (Pepcid*) 20 Mg Tablet, 20 MG PO BID for 4 Days, #30 TAB Prov:BENTON FIGUEROA PA-C 07/06/18 Hydrocodone/Acetaminophen ([place] 5-325 Tablet) 1 Each Tablet, 1 TAB PO Q6H PRN for PAIN, #7 TAB Prov:BENTON FIGUEROA PA-C 07/06/18 Naproxen* (Naprosyn*) 500 Mg Tablet, 500 MG PO BID PRN for PAIN AND/OR INFLAMMATION, #30 TAB Prov:BENTON FIGUEROA PA-C 05/31/18 Benzonatate* (Tessalon Perle*) 100 Mg Capsule, 100 MG PO Q8H PRN for COUGH, #30 CAP Prov:WANDA ARMENDARIZ PA-C 11/10/17 Ibuprofen* (Motrin*) 600 Mg Tab, 600 MG PO Q6, #30 TAB Prov:WANDA ARMENDARIZ PA-C 11/10/17 Ondansetron (Ondansetron Odt) 4 Mg Tab.rapdis, 4 MG PO Q6H PRN for NAUSEA AND/OR VOMITING, #10 TAB Prov:WANDA ARMENDARIZ PA-C 11/10/17 Hydrocortisone* Topical (Hydrocortisone* Topical) 0.5%- 28.35 Gm Oint, 1 APPLIC TOP BID PRN for ITCHING, #1 TUB Prov:TERESA CESPEDES. TAPE CUTTER 08/15/17 Acetaminophen* (Tylophen*) 500 Mg Capsule, 1 CAP PO Q6H PRN for PAIN AND OR ELEVATED TEMP, #20 CAP Prov:TERESA CESPEDES. TAPE CUTTER 08/15/17 Metronidazole* (Flagyl*) 500 Mg Tablet, 500 MG PO TID for 7 Days, TAB Prov:TERESA CESPEDES. TAPE CUTTER 08/15/17 Ciprofloxacin Hcl* (Ciprofloxacin Hcl*) 500 Mg Tablet, 500 MG PO BID for 7 Days, TAB Prov:TERESA CESPEDES NP 08/15/17 Ranitidine Hcl* (Ranitidine Hcl*) 150 Mg Tablet, 150 MG PO Q12, #60 TAB Prov:WANDA ARMENDARIZ PA-C 07/09/17 Loratadine* (Claritin*) 10 Mg Capsule, 10 MG PO DAILY, #30 CAP Prov:WANDA ARMENDARIZ PA-C 07/09/17 Benzonatate* (Tessalon Perle*) 100 Mg Capsule, 100 MG PO Q8H PRN for COUGH, #30 CAP Prov:WANDA ARMENDARIZ PA-C 07/09/17 Ibuprofen* (Motrin*) 600 Mg Tab, 600 MG PO Q6, #30 TAB Prov:JANKI RODAS 01/11/17 Dextromethorphan Hb-Promethazine Hcl* (Promethazine DM* Syrup) 473 Ml Syrup, 5 ML PO Q6 PRN for COUGH for 5 Days, ML Prov:CHRIS JORGENSEN MD 12/26/15 Ibuprofen* (Motrin*) 600 Mg Tab, 600 MG PO Q6, #14 TAB Prov:CHRIS JORGENSEN MD 12/26/15 Tramadol HCl (Tramadol HCl) 50 Mg Tablet, 50 MG PO Q4 PRN for PAIN, #14 TAB Prov:WANDA ARMENDARIZ PA-C 10/30/15 Polyethylene Glycol* (Miralax*) 17 Gm Powd.pack, 17 GM PO DAILY, #7 Prov:BENTON FIGUEROA PA-C 08/14/15 Hydrocortisone Acetate* (Anusol-HC*) 25 Mg/Supp.rect Supp.rect, 1 SUPP [place] HS, #12 SUPP.RECT Prov:BENTON FIGUEROA PA-C 08/14/15 Hydrocodone Bit/Acetaminophen (Anexsia 5-325 Mg Tablet) 1 Tab Tab, 1 TAB PO Q4H PRN for PAIN, #21 Prov:BRITTNEY SINGH 12/17/14 Docusate Sodium* (Colace*) 100 Mg Capsule, 100 MG PO BID, #60 CAP Prov:BRITTNEY SINGH 12/17/14 Amoxicillin-Clavulanate K* (Augmentin*) 875 Mg Tab, 875 MG PO BID for 8 Days, TAB Prov:BRITTNEY SINGH 12/17/14 Pantoprazole* (Protonix* IV) 40 Mg Soln, 40 MG PO DAILY@06 for 14 Days Prov:BRITTNEY SINGH 12/17/14 Allergies Allergies: Coded Allergies: No Known Allergy (Unverified , 05/31/18) PMhx/Soc Medical and Surgical Hx: pt denies Medical Hx History of Surgery: Yes (Appendectomy, C/S, Marika) Anesthesia Reaction: No Hx Neurological Disorder: No Hx Respiratory Disorders: No Hx Cardiac Disorders: No Hx Psychiatric Problems: No Hx Miscellaneous Medical Probl: No Hx Alcohol Use: No Hx Substance Use: No Hx Tobacco Use: No Smoking Status: Never smoker Physical Exam Vitals Vital Signs Date Temp Pulse Resp B/P (MAP) Pulse Ox O2 O2 Flow FiO2 Time Delivery Rate 06/11/19 98.1 72 17 127/92 98 Room Air 03:28 (104) 06/10/19 98.1 94 18 156/85 97 22:44 (108) Physical Exam Const: No acute distress Head: Atraumatic Eyes: Normal Conjunctiva. ENT: Normal External Ears, Nose and Mouth. Neck: Full range of motion. No meningismus. Resp: Clear to auscultation bilaterally Cardio: Regular rate and rhythm, no murmurs Abd: Soft, non tender, non distended. Normal bowel sounds. Negative Baptiste sign. Negative Mari[place] sign (heel jar test). Negative psoas sign. Negative Rovsing sign. Able to jump 10 times without developing lower abdominal pain. No CVA tenderness. Ambulatory with steady gait and without pain to abdomen. Skin: No petechiae or rashes. Color appears normal for ethnicity. No skin tenting. No signs of severe dehydration. Back: No midline or flank tenderness Ext: No cyanosis, or edema Neur: Awake and alert. No neurological deficits. Psych: Normal Mood and Affect Result Diagram: 06/11/194006/11/1940 Results 24 hrs Laboratory Tests Test 06/11/19 00:41 06/11/19 00:44 White Blood Count 9.9 10^3/ul Red Blood Count 5.11 10^6/ul Hemoglobin 13.7 g/dl Hematocrit 41.2 % Mean Corpuscular Volume 80.6 fl Mean Corpuscular Hemoglobin 26.8 pg Mean Corpuscular Hemoglobin Concent 33.3 g/dl Red Cell Distribution Width 13.1 % Platelet Count 322 10^3/UL Mean Platelet Volume 8.7 fl Immature Granulocytes % 0.200 % Neutrophils % 59.1 % Lymphocytes % 33.0 % Monocytes % 5.3 % Eosinophils % 1.9 % Basophils % 0.5 % Nucleated Red Blood Cells % 0.0 /100WBC Immature Granulocytes # 0.020 10^3/ul Neutrophils # 5.8 10^3/ul Lymphocytes # 3.3 10^3/ul Monocytes # 0.5 10^3/ul Eosinophils # 0.2 10^3/ul Basophils # 0.1 10^3/ul Nucleated Red Blood Cells # 0.0 10^3/ul Urine Color YELLOW Urine Clarity SLIGHTLY CLOUDY Urine pH 5.0 Urine Specific [place] 1.026 Urine Ketones NEGATIVE mg/dL Urine Nitrite NEGATIVE mg/dL Urine Bilirubin NEGATIVE mg/dL Urine Urobilinogen NEGATIVE mg/dL Urine Leukocyte Esterase NEGATIVE Kelvin/ul Urine Microscopic RBC > 182 /HPF Urine Microscopic WBC 0 /HPF Urine Squamous Epithelial Cells FEW /HPF Urine Calcium Oxalate Crystals MANY /HPF Urine Hemoglobin 3+ mg/dL Urine Glucose NEGATIVE mg/dL Urine Total Protein NEGATIVE mg/dl Sodium Level 143 mmol/L Potassium Level 3.7 mmol/L Chloride Level 110 mmol/L Carbon Dioxide Level 22 mmol/L Anion Gap 11 Blood Urea Nitrogen 16 mg/dl Creatinine 0.64 mg/dl Est Glomerular Filtrat Rate mL/min > 60 mL/min Glucose Level 130 mg/dl Calcium Level 9.3 mg/dl Total Bilirubin 0.4 mg/dl Direct Bilirubin 0.00 mg/dl Indirect Bilirubin 0.4 mg/dl Aspartate Amino Transf (AST/SGOT) 21 IU/L Alanine Aminotransferase (ALT/SGPT) 29 IU/L Alkaline Phosphatase 86 IU/L Total Protein 7.8 g/dl Albumin 4.3 g/dl Globulin 3.50 g/dl Albumin/Globulin Ratio 1.22 Amylase Level 94 U/L Lipase 185 U/L POC Beta HCG, Qualitative NEGATIVE Procedures/MDM Diagnostic tests: POC urine : Negative. Urinalysis: Reviewed. Culture urine: Sent. Blood works: Reviewed. Pelvic ultrasound: Unremarkable pelvic ultrasound. Treatment: Refused. Re-evaluation: Denies chest pain, back pain, abdominal pain, pelvic pain. Denies vaginal bleeding. No episode of emesis here in the emergency department. Negative Baptiste sign. Negative [place] sign (heel jar test). Negative psoas sign. Negative Rovsing sign. Able to jump 10 times without developing lower abdominal pain. No CVA tenderness. Ambulatory with steady gait and without pain to abdomen. Stated that she feels much better at this time and that she is ready to go home. Stated that she is comfortable to go home. Differential diagnosis I have low suspicion for sepsis, pancreatitis, cholecystitis, diverticulitis, bowel obstruction, appendicitis, ovarian torsion, ovarian cyst rupture, nephrolithiasis, pyelonephritis, obstructing kidney stones, septic stone. Final diagnosis: Vaginal bleeding. Pelvic pain. Prescription: Motrin. Follow-up with PCP in the next 24-48 hours. Follow-up with biological scientist in the next 24 to 48 hours. Come back here in the emergency department for any new symptoms or any worsening symptoms. All questions and concerns were answered. Patient and family members verbalized understanding and agreed with plan of care. Hemodynamically stable on discharge. Departure Diagnosis: Primary Impression: Vaginal bleeding Additional Impression: Pelvic pain Condition: Stable Additional Instructions: Follow-up with PCP in the next 24-48 hours. Follow-up with biological scientist in the next 24 to 48 hours. Come back here in the emergency department for any new symptoms or any worsening symptoms. JAMISON CONTRERAS Jun 11, 2019 00:19
[2019-06-11 03:28] VITALS: BP 127/92; PULSE 72; RESP 17
== END 2019-06-11 03:20 | disposition home or self-care (01) ==
LOC: FTE 22:30
DX: N93.9 Abnormal uterine and vaginal bleeding, unspecified (principal)
CPT/HCPCS: 76830; 76856; 80053; 81001; 81025; 82150; 83690; 85025; 87086; Z7502